=== PATIENT | female | born 1945 | race Caucasian/White ===

== ENCOUNTER 2021-05-30 18:45 | Inpatient (IN) | payer MEDICARE, OTHER ==
[~2021-05-30] VITALS: Ht 152.4 cm; Wt 75.5 kg
[~2021-05-30 18:45] MED LIST: ASPIRIN CHEWABL81 MG PO; ATARAX25 MG PO; BUMEX1 MG PO; BYDUREON2 MG SC; CARTIA XT120 MG PO; CEFDINIR300 MG PO; ELIQUIS2.5 MG PO; HUMALOG SC; HYDRALAZINE25 MG PO; INVANZ 1GM1 GM/VIAL IV; IRON PO; LEVEMIR VI100 UNITS/ SC; LIPITOR40 MG PO; METOPROLOL SUCC50 MG PO; NEXIUM40 MG PO; SINGULAIR10 MG PO; SYNTHROID112 MCG PO; TESSALON PERLE100 MG PO; TRADJENTA5 MG PO; ULORIC40 MG PO; VASCEPA1 GM PO; ZESTRIL2.5 MG PO; ZOFRAN4 MG PO
[2021-05-31] MEDS ORDERED: GLUCOSE4 GM PO (03:45)
[2021-05-31] MEDS ORDERED: AMIODARONE HCL200 MG PO (03:47)
[2021-05-31] MEDS ORDERED: TOPROL XL 50 MG50 MG PO (03:49)
[2021-05-31] MEDS ORDERED: LANTUS **100 UNITS/ SC (03:49)
[2021-05-31] MEDS ORDERED: HUMALOG100 UNIT/1 SC (03:54)
[2021-05-31] MEDS ORDERED: PRILOSEC20 MG PO (03:55)
[2021-05-31 05:07] LABS: BILIRUBIN NEGATIVE (NEGATIVE); BLOOD NEGATIVE Ery/uL (NEGATIVE); CLARITY CLEAR (CLEAR); COLOR YELLOW (YELLOW); GLUCOSE (U) 1+ mg/dL (NORMAL); LEUKOCYTES 2+ Leu/uL (NEGATIVE); NITRITE POSITIVE (NEGATIVE); PROTEIN NEGATIVE (NEGATIVE); SPECIFIC GRAVITY 1.015 (1.001-1.030); UROBILINOGEN 0.2 mg/dL (0.2-1.0)
[2021-05-31 05:20] LABS: BACTERIA TRACE
[2021-05-31 06:26] LABS: BASOPHIL 0.4 % (0-2); EOSINOPHIL 0.8 % (0-7); HCT 24.6 % (37.0-47.0); HGB 7.6 g/dl (12.5-16.0); LYMPHOCYTE 21.1 % (15-48); MCH 28.9 pg (25.0-31.0); MCHC 30.9 g/dL (32.0-36.0); MCV 93.5 fL (78.0-100.0); MONOCYTE 12.3 % (0-12); MPV 11.2 fL (6.0-9.5); NEUTROPHIL 60.8 % (41-80); NRBC 2.1; PLT 123 K/uL (150-400); RBC 2.63 M/uL (4.20-5.40); RDW 15.5 % (11.5-14.0); WBC 5.2 K/uL (4.0-10.5)
[2021-05-31 06:43] LABS: BUN/CREAT RATIO (CALC) 20.1 RATIO; CREATININE 2.09 mg/dL (0.51-0.95); POTASSIUM 4.6 mmol/L (3.5-5.1)
[2021-05-31 11:54] LABS: IRON % SATURATION 14.8 %SAT (20-50)
[2021-05-31 12:34] LABS: RETICULOCYTE COUNT 4.8 % (1.0-2.0)
[2021-05-31 13:08] LABS: FOLIC ACID (SERUM) 13.2 ng/mL (8.6-58.9)
[2021-06-01 06:19] LABS: BASOPHIL 0.3 % (0-2); HCT 26.5 % (37.0-47.0); HGB 8.2 g/dl (12.5-16.0); LYMPHOCYTE 20.3 % (15-48); MCH 28.9 pg (25.0-31.0); MCHC 30.9 g/dL (32.0-36.0); MCV 93.3 fL (78.0-100.0); MPV 11.2 fL (6.0-9.5); NEUTROPHIL 62.4 % (41-80); NRBC 1.7; PLT 148 K/uL (150-400); RBC 2.84 M/uL (4.20-5.40); RDW 15.8 % (11.5-14.0)
[2021-06-01 06:57] LABS: ALBUMIN 3.1 g/dL (3.4-5.0); ALKALINE PHOSHATASE 115 U/L (46-116); ALT 24 U/L (14-59); AST 17 U/L (15-37); BILIRUBIN - TOTAL 0.5 mg/dL (0.2-1.0); BUN 36 mg/dL (7-18); BUN/CREAT RATIO (CALC) 18.3 RATIO; CHLORIDE 104 mmol/L (98-107); CO2 (BICARBONATE) 27 mmol/L (21-32); CREATININE 1.97 mg/dL (0.51-0.95); GLUCOSE 129 mg/dL (74-106); MAGNESIUM 2.1 mg/dL (1.8-2.4); POTASSIUM 3.8 mmol/L (3.5-5.1); TOTAL PROTEIN 6.1 g/dL (6.4-8.2)
[2021-06-01 07:01] LABS: C-REACTIVE PROTEIN < 0.20 mg/dL (<=0.90)
[2021-06-02 07:00] LABS: BUN/CREAT RATIO (CALC) 16.9 RATIO; CREATININE 2.42 mg/dL (0.51-0.95); POTASSIUM 4.7 mmol/L (3.5-5.1)
[2021-06-02 07:32] LABS: BASOPHIL 0.5 % (0-2); EOSINOPHIL 2.2 % (0-7); HCT 24.8 % (37.0-47.0); HGB 7.4 g/dl (12.5-16.0); LYMPHOCYTE 22.8 % (15-48); MCH 28.4 pg (25.0-31.0); MCHC 29.8 g/dL (32.0-36.0); MONOCYTE 14.2 % (0-12); MPV 11.1 fL (6.0-9.5); NEUTROPHIL 59.3 % (41-80); NRBC 1.9; PLT 144 K/uL (150-400); RBC 2.61 M/uL (4.20-5.40); RDW 16.2 % (11.5-14.0); WBC 5.8 K/uL (4.0-10.5)
--- NOTE | 2021-06-02 15:26 | NUR ---
PT WILL D/C HOME WITH SPOUSE. PT. HAS HOME O2 AT 3L. SHE HAS HER PORTABLE TANK WITH HER AT THE HOSPITAL. SHE HAS A CPAP. AND HAS USED [facility] IN THE PAST.
[2021-06-03 06:09] LABS: BASOPHIL 0.5 % (0-2); EOSINOPHIL 2.9 % (0-7); HCT 24.3 % (37.0-47.0); HGB 7.5 g/dl (12.5-16.0); LYMPHOCYTE 26.5 % (15-48); MCH 29.3 pg (25.0-31.0); MCHC 30.9 g/dL (32.0-36.0); MCV 94.9 fL (78.0-100.0); MONOCYTE 11.3 % (0-12); MPV 10.9 fL (6.0-9.5); NRBC 0.8; PLT 144 K/uL (150-400); RBC 2.56 M/uL (4.20-5.40); RDW 16.7 % (11.5-14.0); WBC 6.5 K/uL (4.0-10.5)
[2021-06-03 06:56] LABS: BUN 46 mg/dL (7-18); BUN/CREAT RATIO (CALC) 21.5 RATIO; CHLORIDE 106 mmol/L (98-107); CO2 (BICARBONATE) 26 mmol/L (21-32); CREATININE 2.14 mg/dL (0.51-0.95); GLUCOSE 150 mg/dL (74-106); POTASSIUM 4.7 mmol/L (3.5-5.1)
[2021-06-03 06:57] LABS: C-REACTIVE PROTEIN < 0.20 mg/dL (<=0.90)
[2021-06-04 06:29] LABS: BASOPHIL 0.8 % (0-2); HGB 7.8 g/dl (12.5-16.0); LYMPHOCYTE 19.9 % (15-48); MCH 28.8 pg (25.0-31.0); MCV 95.9 fL (78.0-100.0); MONOCYTE 11.4 % (0-12); MPV 11.2 fL (6.0-9.5); NRBC 0; PLT 176 K/uL (150-400); RBC 2.71 M/uL (4.20-5.40); RDW 17.3 % (11.5-14.0); WBC 6.6 K/uL (4.0-10.5)
[2021-06-04 06:52] LABS: BUN/CREAT RATIO (CALC) 23.6 RATIO; CREATININE 1.95 mg/dL (0.51-0.95); POTASSIUM 4.9 mmol/L (3.5-5.1)
--- NOTE | 2021-06-04 14:52 | NUR ---
PT TO DC HOME WITH [facility]. [facility] WILL BE PROVIDING ABX TO THE HOME. PT SIGNED CHOICE FORM.
[2021-06-04] MEDS ORDERED: INVANZ 1GM1 GM/VIAL IV (15:51)
== END 2021-06-04 16:40 | disposition home health service (06) | DRG 683 ==
LOC: FTCU 18:45
PROVIDERS: Internal Medicine; Nurse Practitioner Acute Care; ADMIT Internal Medicine
PROC: 05HY33Z Insertion of Infusion Device into Upper Vein, Percutaneous Approach (ICD-10-PCS; principal; 2021-06-04)
DX: N17.9 Acute kidney failure, unspecified (principal); N30.00 Acute cystitis without hematuria; E87.2 Acidosis; I13.0 Hypertensive heart and chronic kidney disease with heart failure and stage 1 through stage 4 chronic kidney disease, or unspecified chronic kidney disease; J96.11 Chronic respiratory failure with hypoxia; I50.32 Chronic diastolic (congestive) heart failure; Z16.12 Extended spectrum beta lactamase (ESBL) resistance; I48.20 Chronic atrial fibrillation, unspecified; B96.20 Unspecified Escherichia coli [E. coli] as the cause of diseases classified elsewhere; J44.9 Chronic obstructive pulmonary disease, unspecified; E11.22 Type 2 diabetes mellitus with diabetic chronic kidney disease; N18.30 Chronic kidney disease, stage 3 unspecified; D63.1 Anemia in chronic kidney disease; E11.65 Type 2 diabetes mellitus with hyperglycemia; E78.5 Hyperlipidemia, unspecified; I25.10 Atherosclerotic heart disease of native coronary artery without angina pectoris; E11.319 Type 2 diabetes mellitus with unspecified diabetic retinopathy without macular edema; G47.33 Obstructive sleep apnea (adult) (pediatric); K21.9 Gastro-esophageal reflux disease without esophagitis; E03.9 Hypothyroidism, unspecified; R21 Rash and other nonspecific skin eruption; M19.90 Unspecified osteoarthritis, unspecified site; Z99.81 Dependence on supplemental oxygen; Z86.718 Personal history of other venous thrombosis and embolism; Z95.1 Presence of aortocoronary bypass graft; Z98.49 Cataract extraction status, unspecified eye; Z79.82 Long term (current) use of aspirin; Z79.4 Long term (current) use of insulin; Z79.899 Other long term (current) drug therapy; Z88.0 Allergy status to penicillin; Z88.2 Allergy status to sulfonamides; Z88.5 Allergy status to narcotic agent; Z86.16 Personal history of COVID-19
CPT/HCPCS: 36415; 36600; 71045; 80048; 80053; 81001; 82607; 82746; 82803; 82962; 83540; 83550; 83605; 83735; 84145; 85025; 86140; 87076; 87088; 87186; 94010; 94660; 97162; 97166; 97530-GP; C1751; J1335; J1815; J2185; J2916; J7030

== ENCOUNTER 2021-06-07 23:26 | Emergency (ER) | payer MEDICARE ==
[~2021-06-07 23:26] MED LIST changes: +AMIODARONE HCL200 MG PO; +GLUCOSE4 GM PO; +HUMALOG100 UNIT/1 SC; +LANTUS **100 UNITS/ SC; +PRILOSEC20 MG PO; +TOPROL XL 50 MG50 MG PO
[2021-06-08 02:15] LABS: BASOPHIL 0.7 % (0-2); HCT 25.4 % (37.0-47.0); HGB 7.6 g/dl (12.5-16.0); LYMPHOCYTE 17.2 % (15-48); MCH 29.3 pg (25.0-31.0); MCHC 29.9 g/dL (32.0-36.0); MCV 98.1 fL (78.0-100.0); MONOCYTE 6.9 % (0-12); MPV 10.8 fL (6.0-9.5); NEUTROPHIL 72.5 % (41-80); NRBC 0.2; PLT 197 K/uL (150-400); RBC 2.59 M/uL (4.20-5.40); RDW 19.2 % (11.5-14.0); WBC 9.2 K/uL (4.0-10.5)
[2021-06-08 02:23] LABS: BILIRUBIN NEGATIVE (NEGATIVE); BLOOD NEGATIVE Ery/uL (NEGATIVE); CLARITY CLEAR (CLEAR); COLOR YELLOW (YELLOW); GLUCOSE (U) NORMAL (NORMAL); LEUKOCYTES NEGATIVE Leu/uL (NEGATIVE); NITRITE NEGATIVE (NEGATIVE); PROTEIN NEGATIVE (NEGATIVE); UROBILINOGEN 0.2 mg/dL (0.2-1.0)
[2021-06-08 02:49] LABS: ALBUMIN 3.1 g/dL (3.4-5.0); BILIRUBIN - TOTAL 0.7 mg/dL (0.2-1.0); BUN/CREAT RATIO (CALC) 23.7 RATIO; CREATININE 2.19 mg/dL (0.51-0.95); POTASSIUM 5.1 mmol/L (3.5-5.1); TOTAL PROTEIN 6.1 g/dL (6.4-8.2)
== END 2021-06-08 04:01 | disposition home or self-care (01) ==
LOC: FER 23:26
PROVIDERS: Internal Medicine
DX: E13.22 Other specified diabetes mellitus with diabetic chronic kidney disease (principal); N18.4 Chronic kidney disease, stage 4 (severe); D63.1 Anemia in chronic kidney disease; R30.0 Dysuria; J44.9 Chronic obstructive pulmonary disease, unspecified; Z88.2 Allergy status to sulfonamides; Z88.0 Allergy status to penicillin; Z88.5 Allergy status to narcotic agent; Z79.4 Long term (current) use of insulin
CPT/HCPCS: 36415; 80053; 81003; 84145; 84484; 85025; 93005